=== PATIENT | female | born 1955 | race Caucasian/White ===

== ENCOUNTER 2022-04-28 14:51 | Emergency (ER) | payer MEDICARE, OTHER ==
[~2022-04-28] VITALS: Ht 165.1 cm; Wt 79.4 kg
[~2022-04-28 14:51] MED LIST: ATOR10TA PO; BLOO-697 IN; LEVO500T23 PO; LOSA1TAB39 PO; RANI150C4 PO; SITA1TAB2 PO; UMEC1BLS IH
--- NOTE | 2022-04-28 15:01 | NUR ---
BIBS C/O LEFT ARM PAIN S/P GLF. VITALS ARE WITHIN NORMAL LIMITS. PAIN 10/10 ON PAIN SCALE. AWAITING MD ORDERS.
--- NOTE | 2022-04-28 15:58 | NUR ---
CALLED RADIOLOGY FOR CT, WILL PICKUP PT PER TECH. WARM BLANKET PROVIDED TO PT. Addendum: 04/28/22 at 1618 by ELLA correction: called radiology for xray at bedside
--- NOTE | 2022-04-28 16:15 | NUR ---
SUPERVISOR LEAD BURNING AT BEDSIDE FOR XRAY
[2022-04-28] MEDS ORDERED: HYDROCODONE/APAP 5/325MG TABLET PO ONE (17:00)
[2022-04-28] MEDS ORDERED: HYDROCODONE/APAP 5/325MG TABLET ONE (17:11)
[2022-04-28] MEDS ORDERED: TRAM50TA2 PO (17:16)
--- NOTE | 2022-04-28 17:30 | NUR ---
EMT AT BEDSIDE FOR SLING APPLICATION
--- NOTE | 2022-04-28 17:45 | NUR ---
PER FAMILY, WILL METHODS ANALYST DATA PROCESSING CD AT A LATER TIME.
--- NOTE | 2022-04-28 17:47 | NUR ---
Patient discharged to home in stable condition. Written and verbal after care instructions given. Patient verbalizes understanding of instruction.
[2022-04-28 17:51] VITALS: BP 135/73
== END 2022-04-28 17:51 | disposition home or self-care (01) ==
LOC: ER 14:56
DX: S42.252A Displaced fracture of greater tuberosity of left humerus, initial encounter for closed fracture (principal); I10 Essential (primary) hypertension; E11.9 Type 2 diabetes mellitus without complications; Z79.899 Other long term (current) drug therapy; W18.30XA Fall on same level, unspecified, initial encounter; Y93.89 Activity, other specified; Y92.89 Other specified places as the place of occurrence of the external cause; Y99.8 Other external cause status
CPT/HCPCS: 73030-TC; 73060-TC